=== PATIENT | male | born 1990 | race Hispanic/Latino ===

== ENCOUNTER 2018-07-06 13:30 | Emergency (ER) | payer MEDICAID ==
[~2018-07-06] VITALS: Ht 154.9 cm; Wt 73.0 kg
[~2018-07-06 13:30] MED LIST: BICITRA30 ML/UDC PO; CALCITRIOL XX; CALCITRIOL0.5 MC1 PO; CEPHALEXIN500 MG PO; CITRUCEL500 MG OR; FAMOTIDINE20 M1 PO; FERREX 150150 MG PO; FERROUS SULF325 M2 PO; MIRALAX3350 N1 PO; NORVASC10 M1 PO; RENA-VITE RX PO; RENAGEL 800MG800 MG PO; RENAGEL800 MG PO; SANCTURA20 MG OR; SENOKOT S1 TAB PO; SODIUM BICAR650 MG PO; SODIUM BICARBI650 MG PO; VESICARE10 MG PO; [UNRECOGNIZED DRUG - CODE] OR; [UNRECOGNIZED DRUG - CODE] PO; [UNRECOGNIZED DRUG - REMARK]
[2018-07-06 14:08] LABS: HEMOGLOBIN 11.4 g/dl (14.0-18.0); IMMATURE GRANULOCYTES 0.6 % (0.0-5.0); MEAN CELL VOLUME 93.8 fL CALC (80.0-100.0); MEAN CORPUSCULAR HGB 30.6 pG CALC (26.0-32.0); MEAN CORPUSCULAR HGB CONC 32.6 g/L CALC (32.0-36.0); NEUT# 13.35 thou/uL (1.82-7.42); RED BLOOD COUNT 3.73 mill/uL (4.70-6.10); RED CELL DISTRI WIDTH 12.7 % (11.5-15.5)
[2018-07-06 14:33] LABS: BILIRUBIN, TOTAL 1.2 mg/dL (0.0-1.4); TOTAL PROTEIN 7.3 g/dL (6.3-8.2)
[2018-07-06 14:36] LABS: ALBUMIN 3.6 g/dL (3.2-5.0); CREATININE 5.1 mg/dL (0.7-1.3)
[2018-07-06 14:37] LABS: POTASSIUM 4.6 mmol/l (3.5-5.1)
[2018-07-06 15:39] VITALS: BP 166/99
== END 2018-07-06 15:39 | disposition short-term general hospital (02) ==
LOC: ED 13:30
PROVIDERS: Emergency Medicine
DX: J18.9 Pneumonia, unspecified organism (principal); R00.0 Tachycardia, unspecified; R06.89 Other abnormalities of breathing; I12.0 Hypertensive chronic kidney disease with stage 5 chronic kidney disease or end stage renal disease; N18.6 End stage renal disease; Q05.9 Spina bifida, unspecified; Z99.2 Dependence on renal dialysis
CPT/HCPCS: J0692

== ENCOUNTER 2019-04-07 10:24 | Emergency (ER) | payer MEDICAID ==
[~2019-04-07] VITALS: Ht 154.9 cm; Wt 63.0 kg
[2019-04-07 11:30] LABS: HEMATOCRIT 32.7 % (39.0-50.0); HEMOGLOBIN 10.6 g/dl (14.0-18.0); IMMATURE GRANULOCYTES 0.3 % (0.0-5.0); MEAN CELL VOLUME 95.1 fL CALC (80.0-100.0); MEAN CORPUSCULAR HGB 30.8 pG CALC (26.0-32.0); MEAN CORPUSCULAR HGB CONC 32.4 g/L CALC (32.0-36.0); NEUT# 6.83 thou/uL (1.82-7.42); RED BLOOD COUNT 3.44 mill/uL (4.70-6.10); RED CELL DISTRI WIDTH 12.7 % (11.5-15.5)
[2019-04-07 11:42] LABS: ALBUMIN 4.3 g/dL (3.2-5.0); BILIRUBIN, TOTAL 1.2 mg/dL (0.0-1.4); POTASSIUM 4.7 mmol/l (3.5-5.1); TOTAL PROTEIN 7.3 g/dL (6.3-8.2)
[2019-04-07] MEDS ORDERED: ZITHROMAX250 MG PO (12:01)
[2019-04-07 12:07] VITALS: BP 152/91
== END 2019-04-07 12:12 | disposition home or self-care (01) ==
LOC: ED 10:24
PROVIDERS: Emergency Medicine
DX: J06.9 Acute upper respiratory infection, unspecified (principal)

== ENCOUNTER 2020-03-21 22:36 | Emergency (ER) | payer OTHER ==
[~2020-03-21 22:36] MED LIST changes: +ZITHROMAX250 MG PO
[2020-03-21 23:26] LABS: HEMATOCRIT 31.1 % (39.0-50.0); HEMOGLOBIN 9.9 g/dl (14.0-18.0); IMMATURE GRANULOCYTES 0.5 % (0.0-5.0); MEAN CELL VOLUME 96.6 fL CALC (80.0-100.0); MEAN CORPUSCULAR HGB 30.7 pG CALC (26.0-32.0); MEAN CORPUSCULAR HGB CONC 31.8 g/dL CAL (32.0-36.0); NEUT# 15.4 thou/uL (1.82-7.42); RED BLOOD COUNT 3.22 mill/uL (4.70-6.10); RED CELL DISTRI WIDTH 13.5 % (11.5-15.5)
[2020-03-21 23:48] LABS: ALBUMIN 3.8 g/dL (3.2-5.0); TOTAL PROTEIN 6.8 g/dL (6.3-8.2)
[2020-03-21 23:49] LABS: ACT PARTIAL THROMBO TIME 28.9 SECONDS (20.0-32.5); INTERNATIONAL NORMALIZED RATIO 1.2 RATIO (0.7-1.3); PROTHROMBIN TIME 12.3 SECONDS (9.0-12.5)
[2020-03-21 23:55] LABS: CREATININE 7.8 mg/dL (0.7-1.3)
[2020-03-21 23:57] LABS: BILIRUBIN, TOTAL 0.7 mg/dL (0.0-1.4); POTASSIUM 5.5 mmol/l (3.5-5.1)
[2020-03-22 01:00] VITALS: BP 180/111
== END 2020-03-22 01:15 | disposition short-term general hospital (02) ==
LOC: ED 22:36
DX: I13.2 Hypertensive heart and chronic kidney disease with heart failure and with stage 5 chronic kidney disease, or end stage renal disease (principal); J96.00 Acute respiratory failure, unspecified whether with hypoxia or hypercapnia; I16.1 Hypertensive emergency; I50.9 Heart failure, unspecified; N18.6 End stage renal disease; Q05.9 Spina bifida, unspecified; Z98.2 Presence of cerebrospinal fluid drainage device; Z99.2 Dependence on renal dialysis; Z20.828 Contact with and (suspected) exposure to other viral communicable diseases

== ENCOUNTER 2022-02-26 08:21 | Emergency (ER) | payer OTHER ==
[~2022-02-26] VITALS: Ht 154.9 cm; Wt 59.0 kg
[2022-02-26 08:26] VITALS: BP 115/69
[2022-02-26] MEDS ORDERED: HYDRALAZINE10 M2 PO (08:32)
[2022-02-26] MEDS ORDERED: CARVEDILOL3.125 MG PO (08:33)
[2022-02-26] MEDS ORDERED: LOSARTAN POTASS25 MG PO (08:33)
[2022-02-26 08:34] VITALS: BP 118/69
[2022-02-26] MEDS ORDERED: ENTRESTO 24-261 TAB (08:34)
== END 2022-02-26 08:45 | disposition home or self-care (01) ==
LOC: ED 08:21
DX: Z48.01 Encounter for change or removal of surgical wound dressing (principal); I12.0 Hypertensive chronic kidney disease with stage 5 chronic kidney disease or end stage renal disease; N18.6 End stage renal disease; Q05.9 Spina bifida, unspecified; Z99.2 Dependence on renal dialysis

== ENCOUNTER 2023-06-20 12:16 | Emergency (ER) | payer OTHER ==
[~2023-06-20] VITALS: Ht 154.9 cm; Wt 56.8 kg
[2023-06-20] VITALS (61 sets, daily range): BP systolic 102–201; BP diastolic 62–120
[~2023-06-20 12:16] MED LIST changes: +CARVEDILOL3.125 MG PO; +ENTRESTO 24-261 TAB; +HYDRALAZINE10 M2 PO; +LOSARTAN POTASS25 MG PO
[2023-06-20 12:54] LABS: BASO% 0.9 % (0-3); EOS% 4.5 % (0-8); LYMPH% 17.5 % (15-41); MEAN CORPUSCULAR HGB 32.6 pG CALC (26.0-32.0); MEAN CORPUSCULAR HGB CONC 32.6 g/dL CAL (32.0-36.0); MONO% 10.1 % (2-13); NEUT# 2.26 thou/uL (1.82-7.42); RED BLOOD COUNT 2.88 mill/uL (4.70-6.10); RED CELL DISTRI WIDTH 16.2 % (11.5-15.5)
[2023-06-20 12:55] LABS: HEMATOCRIT 28.8 % (39.0-50.0); HEMOGLOBIN 9.4 g/dl (14.0-18.0)
[2023-06-20 13:06] LABS: BILIRUBIN, TOTAL 0.4 mg/dL (0.2-1.3)
[2023-06-20 13:11] LABS: ALBUMIN 2.6 g/dL (3.2-5.0); POTASSIUM 6.4 mmol/l (3.5-5.1); TOTAL PROTEIN 5.8 g/dL (6.3-8.2)
[2023-06-20 13:13] LABS: CREATININE 5.6 mg/dL (0.7-1.3)
[2023-06-20 17:24] LABS: CREATININE 5.3 mg/dL (0.7-1.3)
[2023-06-20 17:25] LABS: POTASSIUM 7.1 mmol/l (3.5-5.1)
== END 2023-06-20 18:40 | disposition short-term general hospital (02) ==
LOC: ED 12:16 → ED-I 15:36 → ED 18:40
PROVIDERS: Family Medicine
DX: I12.0 Hypertensive chronic kidney disease with stage 5 chronic kidney disease or end stage renal disease (principal); N18.6 End stage renal disease; E87.5 Hyperkalemia; Z99.2 Dependence on renal dialysis; T82.594A Other mechanical complication of infusion catheter, initial encounter; Y83.8 Other surgical procedures as the cause of abnormal reaction of the patient, or of later complication, without mention of misadventure at the time of the procedure; Q05.9 Spina bifida, unspecified; Z98.2 Presence of cerebrospinal fluid drainage device; Z91.15 Patient's noncompliance with renal dialysis
CPT/HCPCS: J0692

== ENCOUNTER 2023-08-30 01:58 | Emergency (ER) | payer OTHER ==
[~2023-08-30] VITALS: Ht 154.9 cm; Wt 68.0 kg
[2023-08-30] VITALS (90 sets, daily range): BP systolic 118–264; BP diastolic 70–130
[~2023-08-30 01:58] MED LIST changes: -ENTRESTO 24-261 TAB; +ENTRESTO 24-261 TAB PO
[2023-08-30 02:54] LABS: BASO% 0.1 % (0-3); EOS% 1.3 % (0-8); HEMATOCRIT 21.9 % (39.0-50.0); HEMOGLOBIN 7.2 g/dl (14.0-18.0); IMMATURE GRANULOCYTES 0.8 % (0.0-5.0); LYMPH% 4.4 % (15-41); MEAN CORPUSCULAR HGB 30.9 pG CALC (26.0-32.0); MEAN CORPUSCULAR HGB CONC 32.9 g/dL CAL (32.0-36.0); MONO% 4.3 % (2-13); NEUT# 11.98 thou/uL (1.82-7.42); NEUT% 89.1 % (42-76); RED BLOOD COUNT 2.33 mill/uL (4.70-6.10); RED CELL DISTRI WIDTH 13.6 % (11.5-15.5)
[2023-08-30 03:06] LABS: ALBUMIN 3.3 g/dL (3.2-5.0); ALKALINE PHOSPHATASE 179 u/l (38-126); ANION GAP 14 (6-22 (CALC)); BILIRUBIN, TOTAL 0.5 mg/dL (0.2-1.3); CARBON DIOXIDE 31 mmol/l (22-30); CHLORIDE 90 mmol/l (95-108); GFR OTHER RACES 59 ML/MIN (>=60 (CALC)); POTASSIUM 3.1 mmol/l (3.5-5.1); SGOT/AST 54 u/l (17-59); SODIUM 132 mmol/l (137-146); TOTAL PROTEIN 7.1 g/dL (6.3-8.2)
[2023-08-30 03:13] LABS: BUN 21 mg/dL (9-20); BUN/CREATININE RATIO 15 (12-20 (CALC)); CREATININE 1.4 mg/dL (0.7-1.3); GFR FOR AFR.AMER. > 60 ML/MIN (>=60 (CALC))
[2023-08-30] MEDS ORDERED: CLONIDINE0.2 MG PO (07:21)
[2023-08-30] MEDS ORDERED: VALSARTAN160 MG PO (07:22)
[2023-08-30] MEDS ORDERED: PEPCID20 MG PO (07:24)
[2023-08-30] MEDS ORDERED: NIFEDIPINE90 M1 PO (07:25)
[2023-08-30] MEDS ORDERED: HYDROCHLOROT25 MG PO (07:26)
[2023-08-30] MEDS ORDERED: ENTRESTO 49-511 TAB PO (07:26)
== END 2023-08-30 10:03 | disposition short-term general hospital (02) ==
LOC: ED 01:58
PROVIDERS: Family Medicine
DX: J96.90 Respiratory failure, unspecified, unspecified whether with hypoxia or hypercapnia (principal); I16.1 Hypertensive emergency; I12.0 Hypertensive chronic kidney disease with stage 5 chronic kidney disease or end stage renal disease; N18.6 End stage renal disease; Z99.2 Dependence on renal dialysis; Q05.9 Spina bifida, unspecified; Z93.3 Colostomy status; Z93.1 Gastrostomy status; Z20.822 Contact with and (suspected) exposure to COVID-19

== ENCOUNTER 2024-06-23 09:40 | Emergency (ER) | payer OTHER ==
[~2024-06-23] VITALS: Ht 154.9 cm; Wt 55.9 kg
[2024-06-23] VITALS (12 sets, daily range): BP systolic 151–164; BP diastolic 91–98
[~2024-06-23 09:40] MED LIST changes: +CLONIDINE0.2 MG PO; +ENTRESTO 49-511 TAB PO; +HYDROCHLOROT25 MG PO; +NIFEDIPINE90 M1 PO; +PEPCID20 MG PO; +VALSARTAN160 MG PO
[2024-06-23 10:16] LABS: BASO% 0.4 % (0-3); EOS% 3.3 % (0-8); IMMATURE GRANULOCYTES 0.1 % (0.0-5.0); MEAN CELL VOLUME 92.3 fL CALC (80.0-100.0); MEAN CORPUSCULAR HGB 29.8 pG CALC (26.0-32.0); MEAN CORPUSCULAR HGB CONC 32.3 g/dL CAL (32.0-36.0); NEUT# 8.52 thou/uL (1.82-7.42); NEUT% 83.2 % (42-76); RED BLOOD COUNT 4.16 mill/uL (4.70-6.10)
[2024-06-23 10:18] LABS: HEMATOCRIT 38.4 % (39.0-50.0); HEMOGLOBIN 12.4 g/dl (14.0-18.0)
[2024-06-23 11:02] LABS: ALBUMIN 4.1 g/dL (3.2-5.0); ALKALINE PHOSPHATASE 225 u/l (38-126); ANION GAP 12 (6-22 (CALC)); CARBON DIOXIDE 31 mmol/l (22-30); CHLORIDE 95 mmol/l (95-108); CREATININE 4.2 mg/dL (0.7-1.3); ESTIMATED GFR 18 ML/MIN (>=90 (CALC)); POTASSIUM 3.8 mmol/l (3.5-5.1); SGOT/AST 26 u/l (17-59); SODIUM 134 mmol/l (137-146); TOTAL PROTEIN 8.3 g/dL (6.3-8.2)
[2024-06-23 11:04] LABS: BILIRUBIN, TOTAL 0.6 mg/dL (0.2-1.3); BUN 55 mg/dL (9-20); BUN/CREATININE RATIO 13 (12-20 (CALC))
== END 2024-06-23 14:05 | disposition home or self-care (01) ==
LOC: ED 09:40
PROVIDERS: Family Medicine
DX: R56.9 Unspecified convulsions (principal); I12.0 Hypertensive chronic kidney disease with stage 5 chronic kidney disease or end stage renal disease; N18.6 End stage renal disease; Z99.2 Dependence on renal dialysis; Q05.9 Spina bifida, unspecified; Z98.2 Presence of cerebrospinal fluid drainage device
CPT/HCPCS: J1953

== ENCOUNTER 2024-06-30 11:50 | Emergency (ER) | payer OTHER ==
[~2024-06-30] VITALS: Ht 154.9 cm; Wt 52.6 kg
[2024-06-30] VITALS (27 sets, daily range): BP systolic 148–225; BP diastolic 85–113
[2024-06-30] MEDS ORDERED: hydrALAZINE HCL 20 MG/ML VIAL(1 ML) IV ONE ×3 (11:55→17:50)
[2024-06-30 12:13] LABS: BASO% 0.4 % (0-3); EOS% 2.7 % (0-8); HEMATOCRIT 36.6 % (39.0-50.0); HEMOGLOBIN 11.9 g/dl (14.0-18.0); IMMATURE GRANULOCYTES 0.2 % (0.0-5.0); LYMPH% 12.8 % (15-41); MEAN CORPUSCULAR HGB 29.9 pG CALC (26.0-32.0); MEAN CORPUSCULAR HGB CONC 32.5 g/dL CAL (32.0-36.0); MONO% 7.3 % (2-13); NEUT# 4.2 thou/uL (1.82-7.42); NEUT% 76.6 % (42-76); RED BLOOD COUNT 3.98 mill/uL (4.70-6.10); RED CELL DISTRI WIDTH 15.1 % (11.5-15.5)
[2024-06-30 12:24] LABS: ALBUMIN 3.8 g/dL (3.2-5.0); ALKALINE PHOSPHATASE 170 u/l (38-126); ANION GAP 8 (6-22 (CALC)); BILIRUBIN, TOTAL 0.5 mg/dL (0.2-1.3); BUN 42 mg/dL (9-20); BUN/CREATININE RATIO 16 (12-20 (CALC)); CARBON DIOXIDE 33 mmol/l (22-30); CHLORIDE 96 mmol/l (95-108); ESTIMATED GFR 31 ML/MIN (>=90 (CALC)); POTASSIUM 3.5 mmol/l (3.5-5.1); SGOT/AST 30 u/l (17-59); SODIUM 134 mmol/l (137-146)
[2024-06-30 12:25] LABS: CREATININE 2.7 mg/dL (0.7-1.3)
[2024-06-30] MEDS ORDERED: RENVELA800 MG PO (12:37)
[2024-06-30] MEDS ORDERED: VENTOLIN HFA108 MCG (12:38)
[2024-06-30] MEDS ORDERED: LASIX 40 MG TAB40 MG PO (12:40)
[2024-06-30] MEDS ORDERED: AMLODIPINE BESYL5 MG PO (12:41)
[2024-06-30] MEDS ORDERED: LEVETIRACETAM500 MG PO (12:42)
[2024-06-30] MEDS ORDERED: APRESOLINE10 MG PO (17:53)
== END 2024-06-30 18:03 | disposition home or self-care (01) ==
LOC: ED 11:50
PROVIDERS: Family Medicine
DX: I12.0 Hypertensive chronic kidney disease with stage 5 chronic kidney disease or end stage renal disease (principal); N18.6 End stage renal disease; Z99.2 Dependence on renal dialysis; Q05.9 Spina bifida, unspecified

== ENCOUNTER 2024-10-19 09:46 | Emergency (ER) | payer OTHER ==
[~2024-10-19] VITALS: Ht 154.9 cm; Wt 65.0 kg
[2024-10-19] VITALS (10 sets, daily range): BP systolic 120–155; BP diastolic 77–93
[~2024-10-19 09:46] MED LIST changes: +AMLODIPINE BESYL5 MG PO; +APRESOLINE10 MG PO; +LASIX 40 MG TAB40 MG PO; +LEVETIRACETAM500 MG PO; +RENVELA800 MG PO; +VENTOLIN HFA108 MCG
[2024-10-19] MEDS ORDERED: LORazepam 1 MG/TAB PO ONE (09:55)
[2024-10-19 10:15] LABS: BASO% 0.4 % (0-3); EOS% 3.4 % (0-8); HEMATOCRIT 31.8 % (39.0-50.0); HEMOGLOBIN 10.3 g/dl (14.0-18.0); IMMATURE GRANULOCYTES 0.1 % (0.0-5.0); LYMPH% 10.8 % (15-41); MEAN CORPUSCULAR HGB 31.4 pG CALC (26.0-32.0); MEAN CORPUSCULAR HGB CONC 32.4 g/dL CAL (32.0-36.0); MONO% 5.9 % (2-13); NEUT% 79.4 % (42-76); RED BLOOD COUNT 3.28 mill/uL (4.70-6.10); RED CELL DISTRI WIDTH 14.8 % (11.5-15.5)
[2024-10-19 10:36] LABS: ALBUMIN 3.8 g/dL (3.2-5.0); TOTAL PROTEIN 7.6 g/dL (6.3-8.2)
[2024-10-19 10:42] LABS: BILIRUBIN, TOTAL 0.8 mg/dL (0.2-1.3)
[2024-10-19 10:43] LABS: POTASSIUM 5.3 mmol/l (3.5-5.1)
[2024-10-19 10:44] LABS: CREATININE 6.5 mg/dL (0.7-1.3)
[2024-10-19] MEDS ORDERED: ATIVAN1 M1 PO (12:26)
== END 2024-10-19 12:29 | disposition home or self-care (01) ==
LOC: ED 09:46
PROVIDERS: Family Medicine
DX: R56.9 Unspecified convulsions (principal); Q05.9 Spina bifida, unspecified; I12.0 Hypertensive chronic kidney disease with stage 5 chronic kidney disease or end stage renal disease; N18.6 End stage renal disease; Z99.2 Dependence on renal dialysis; Z99.3 Dependence on wheelchair; Z93.3 Colostomy status